=== PATIENT | male | born 1985 | race Caucasian/White ===

== ENCOUNTER 2018-08-08 09:22 | Inpatient (IN) | payer BC, OTHER ==
[~2018-08-08] VITALS: Ht 180.3 cm; Wt 98.4 kg
--- NOTE | 2018-08-08 19:52 | NUR ---
PRE ADMISSION NOTE Pt is a 32 y/o male seen at intake, A&O x 4 and presents with anxiety, flushed skin, chills, agitation, restlessness, flat affect, slumped posture and is fidgety. Pt is ambulatory with a steady gait. Vital signs: BP 124/73, HR 87, T 98.5 F, RR 18, O2 95% on room air and Pain 0/10. Pt is allergic to cat dander. Pt did bring home medications, which include; Lamictal as a mood stabilizer, Lexapro for depression, and Klonopin for increased anxiety. Pt reports abusing Klonopin since prescribed. Pt has been complaint with his other prescribed medications. Pt reports PMH of anxiety and depression. No history of seizures reported by the Pt. Educated Pt about rules and policies of the unit including handling of contraband and taking vital signs Q4H. Will continue care of Pt upon arrival on unit.
[2018-08-08 19:53] LABS: *AMPHETAMINE, URINE NEGATIVE (NEGATIVE); *BARBITURATE, URINE NEGATIVE (NEGATIVE); *CANNABINOID, URINE POSITIVE (NEGATIVE); *COCCAINE, URINE NEGATIVE (NEGATIVE); *OPIATE, URINE NEGATIVE (NEGATIVE); *PHENCYCLIDINE SCREEN,URINE NEGATIVE (NEGATIVE)
[2018-08-08] MEDS ORDERED: LAMO150T PO (19:59)
[2018-08-08] MEDS ORDERED: ESCI20TA PO (19:59)
[2018-08-08] MEDS ORDERED: CLON0.5T PO (19:59)
[2018-08-08] MEDS ORDERED: ESCI10TA PO (19:59)
--- NOTE | 2018-08-08 20:00 | NUR ---
ADMISSION NOTE Pt arrived on the unit at 1952 on 08/08/18 for medically supervised withdrawal from ETOTH and benzodiazepines. He also reported using marijuana. Skin and body check completed. No contraband found. Pt has provided all required tests at intake. Pt is 5'11 and weighs 217 lbs. Initial CIWA 3 COWS 5. Pt is disheveled with unkempt clothing and appearance. Pt presents with anxiety, flushed skin, agitation, and is fidgety. Pt is ambulatory with a steady gait. PEERLA. Respirations even and unlabored, lung sounds clear bilaterally. Last BM today. Vital signs: BP 124/73, HR 87, T 98.5 F, RR 18, O2 95% on room air and Pain 0/10. Pt is allergic to cat dander Substance Use History: 1. Alcohol 1 pint of whiskey and 72 fl oz of beer daily PO . Last use was 280ml of whiskey and 3 12 fl oz beers on 08/08/18. First use 20 years ago 2. Klonopin 0.5 mg daily by PO x 5 months. Last use was 0.5 mg on 08/08/18. First use March 2018 3. Marijuana 0.5 g-1 g daily by inhalation x 4 months. Last use was 0.5 g on 08/08/18. First use 20 years ago. Pt denies any PMH. Pt reported a psychiatric history of anxiety and depression. Pt has a HX of blackouts but denies any overdoses. Pt denies any SI/HI history or any psychiatric holds. Pt does not smoke cigarettes. Pt is full code, regular diet, NKA and on fall/seizure precautions. Pt states that his withdrawal symptoms include flu like symptoms, increased anxiety, sweats, and tremors. Pt has tried getting sober 4-5 times in the past. Pt states that his longest sobriety period was from November 2016 to March 07. Pt reports going to [facility] 2 times. First in 03/03 for a total of 5 days and 08/04 for a total of 5 days. Pt lives in an apartment with his girlfriend in [place]. Pt has no children. Pt reports he uses and has a difficult time remaining sober d/t increased anxiety and when he starts drinking it's hard for him to stop. Pt denies using needles for using drugs. In the past year the Pt has experienced a divorce, job loss, and has moved from [place] to [place]. Pt states " I want to get sober because my life is a million times better and I want to do it for myself. When asked what barriers keep him from staying sober the Pt responded, " I got away from my treatment team." "I have a great foundation in place, I have a supportive family and girlfriend. I also have a sponsor and I attend AA meetings weekly. But I've been drinking after my AA meetings and I haven't been honest with my team. 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 Oriented Pt to room and unit, educated Pt about rules and expectations of the unit and how to use the call light. Pt verbalized understanding. Addendum: 08/09/18 at 0737 by JOSÉ MIGUEL HENDRICKS RN Pt has been using 1 pint of whiskey and 72 fl oz of beer daily since February 2018
[2018-08-08] MEDS ORDERED: HYDROXYZINE PAMOATE 25 MG CAPSULE PO PRN (21:45)
[2018-08-08] MEDS ORDERED: MAGNESIUM HYDROXIDE 30 ML LIQUID UDC PO PRN (21:45)
[2018-08-08] MEDS ORDERED: LOPERAMIDE HCL 2 MG CAPSULE PO PRN ×2 (21:45)
[2018-08-08] MEDS ORDERED: CLONIDINE HCL 0.1 MG TABLET PO PRN (21:45)
[2018-08-08] MEDS ORDERED: THIAMINE HCL 200 MG/2 ML VIAL IM ONE (21:45)
[2018-08-08] MEDS ORDERED: ONDANSETRON ODT 4 MG TAB.RAPDIS SL PRN (21:45)
[2018-08-08] MEDS ORDERED: diphenhydrAMINE 50 MG CAPSULE PO PRN (21:45)
[2018-08-08] MEDS ORDERED: MAG HYDROX/AL HYDROX/SIMETH 30 ML LIQUID UDC PO PRN (21:45)
[2018-08-08] MEDS ORDERED: MIRALAX 17 GM POWD.PACK PO PRN (21:45)
[2018-08-08] MEDS ORDERED: IBUPROFEN 600 MG TABLET PO PRN (21:45)
[2018-08-08] MEDS ORDERED: DIAZEPAM 10 MG TABLET PO PRN ×2 (21:45)
[2018-08-08] MEDS ORDERED: LORAZEPAM 2 MG/1 ML VIAL IM PRN (21:45)
[2018-08-08] MEDS ORDERED: DIAZEPAM 5 MG TABLET PO PRN (21:45)
--- NOTE | 2018-08-08 22:16 | NUR ---
PRN VALIUM 10 MG ADMINISTRATION Pt reports increased anxiety,agitation, tremors, flushed/moist skin, and is restless. COWS 8 and CIWA 12. Valium 10 mg were administered per order. Safety measures in place. Call light within reach. Will continue to monitor.
[2018-08-08 22:43] LABS: BASOPHILS # (AUTO) 0.1 K/uL (0.0-8.0); BASOPHILS % (AUTO) 1.2 % (0.0-2.0); EOSINOPHILS # (AUTO) 0.2 K/uL (0.0-0.7); EOSINOPHILS % (AUTO) 2.5 % (0.0-7.0); HEMOGLOBIN 14.9 g/dL (12.5-16.3); LYMPHOCYTES # (AUTO) 2.5 K/uL (20.0-40.0); LYMPHOCYTES % (AUTO) 37.4 % (20.5-51.5); MEAN CORPUSCULAR HEMOGLOBIN 32.5 uug (23.8-33.4); MEAN CORPUSCULAR HGB CONC 35 g/dL (32.5-36.3); MEAN CORPUSCULAR VOLUME 93.7 fL (73.0-96.2); MONOCYTES # (AUTO) 0.7 K/uL (2.0-10.0); MONOCYTES % (AUTO) 10.2 % (0.0-11.0); NEUTROPHILS # (AUTO) 3.2 K/uL (1.8-8.9); NEUTROPHILS % (AUTO) 48.7 % (38.5-71.5); PLATELET COUNT (AUTO) 229 K/uL (152-348); RED BLOOD CELL COUNT(AUTO) 4.59 MIL/uL (4.06-5.63); WHITE BLOOD COUNT (AUTO) 6.6 K/uL (3.6-10.2)
[2018-08-08 22:57] LABS: BILIRUBIN,TOTAL 0.2 mg/dL (0.2-1.0); POTASSIUM 3.9 mmol/L (3.5-5.1); TOTAL PROTEIN, SERUM 7.2 g/dL (6.4-8.2)
[2018-08-08 23:07] LABS: THYROID STIMULATING HORMONE 3.091 mIU/mL (0.358-3.740)
--- NOTE | 2018-08-08 23:16 | NUR ---
PRN VALIUM 10 MG REASSESSMENT Pt was found laying in bed with eyes closed. Respiration even and unlabored. Medication noted effective. Safety measures in place. Call light within reach. Will continue to monitor.
--- NOTE | 2018-08-09 | NUR ---
COWS/CIWA DEFERRED AND VITAL SIGNS REFUSED Patient is noted in bed with eyes closed. Breathing even and non labored. COWS/CIWA and vital signs not able to be completed per order. Safety measures in place. Call light within reach. Will continue to monitor.
--- NOTE | 2018-08-09 07:37 | NUR ---
END OF SHIFT Pt is a 32 y/o male admitted on 08/08/18 for ETOH and benzo withdrawal. Pt placed on a 5 day Valium taper starting today. Pt presented with anxiety, flushed skin, chills, agitation, restlessness, flat affect, slumped posture and is fidgety. PRN Valium was administered, effective with S/S of withdrawal BRIT Pt sleeping 7 hours. Last CIWA 12. Pt slept 7 hours. Intake 500 ml, void x 1, stool x 0. Safety measures in place. Call light within reach. Pts needs have been met. Endorsed to day shift. Pt is only here for ETOH and Benzos. The COWS score is not needed for Pt's care. RN mistake.
--- NOTE | 2018-08-09 07:45 | NUR ---
START OF SHIFT Pt is a 32 yr old male, AA&Ox3. Pt was admitted on 08/08/18 for ETOH/Benzo withdrawal and is to start on 5 day Valium taper as ordered. Received report from machinist 2nd shift nurse. Pt was given Valium 10mg PO PRN for s/s of w/d. Last CIWA score was 12. Medication was effective. Pt slept for 7 hrs. Pt is currently in bed sleeping with respirations even and unlabored. Skin is intact, warm and moist to touch. Pt's room is observed with dirty clothes on the floor and open food wrappers on the bedside table. Safety precautions observed. call light is within reach. Will continue to monitor.
[2018-08-09 08:00] VITALS: BP 133/84
[2018-08-09] MEDS: FOLIC ACID 1 MG TABLET PO SCH (08:52)
[2018-08-09] MEDS: DIAZEPAM 10 MG TABLET PO SCH ×4 (08:52→20:37)
[2018-08-09] MEDS: THIAMINE HCL 100 MG TABLET PO SCH (08:52)
[2018-08-09] MEDS: MULTIVITAMINS,THERAPEUTIC TABLET PO SCH (08:52)
--- NOTE | 2018-08-09 08:52 | NUR ---
CIWA ASSESSMENT Pt is c/o anxiety, agitation, headache, generalized body aches 4/10, sweats and chills. Pt is observed restless. CIWA score was 12. Pt received Valium 10mg PO as scheduled at 0900 and Motrin 600mg PO PRN for generalized body aches and headaches. Encouraged increase fluid intake. Will continue to monitor.
[2018-08-09] MEDS ORDERED: 5 DAY TAPER VALIUM-SERENITY PROTOCOL PO PRN (09:00)
[2018-08-09] MEDS ORDERED: TUBERCULIN,PURIF.PROT.DERIV. 5 TU/0.1 ML TEST ID ONE (09:00)
--- NOTE | 2018-08-09 09:52 | NUR ---
PRN RE-ASSESSMENT Motrin 600mg PO PRN was effective for headache. Pt denies any headache at this time. Pt was encouraged increase fluid intake for hydration. Will continue to monitor.
[2018-08-09 12:00] VITALS: BP 132/87
--- NOTE | 2018-08-09 12:00 | NUR ---
CIWA ASSESSMENT Pt was c/o restlessness, anxiety, agitation, sweats, chills and lack of appetite. Pt is observed fidget and flushed. CIWA score was 8. Encouraged increase fluid intake for hydration. Safety precautions observed. will continue to monitor.
[2018-08-09] MEDS ORDERED: ESCITALOPRAM OXALATE 10 MG TABLET PO SCH ×2 (14:00)
--- NOTE | 2018-08-09 15:03 | NUR ---
Therapist prompted client to attend group therapy.
[2018-08-09] MEDS: ESCITALOPRAM OXALATE 10 MG TABLET PO SCH (15:10)
[2018-08-09 16:30] VITALS: BP 130/84
--- NOTE | 2018-08-09 20:00 | NUR ---
CIWA ASSESSMENT Pt is c/o anxiety, agitation, sweats and restlessness. Pt is observed fidgety in bed and flushed skin. CIWA score is 8. Pt was encouraged increase fluid intake for hydration. Will continue to monitor.
[2018-08-09 20:13] VITALS: BP 150/86
[2018-08-09] MEDS: LAMOTRIGINE 100 MG TABLET PO SCH (20:38)
--- NOTE | 2018-08-10 | NUR ---
CIWA/VITAL SIGNS DEFERRED CIWA assessment and vital signs are deferred at this time. Pt is currently in bed sleeping with respirations seven and unlabored. RR is 16. Safety precautions observed. Will continue to monitor.
--- NOTE | 2018-08-10 00:21 | NUR ---
END OF SHIFT Pt is a 32 yr old male, AA&Ox4. Pt was admitted on 08/08/18 for ETOH /Benzo withdrawal and is on 5 day Valium taper as ordered. Pt has been cooperative with medication regimen and plan of care. Pt was observed attending group therapy. Pt was c/o anxiety, agitation, headache, muscle aches, sweats, chills, restlessness and pins and needles. Pt is observed with flushed and clammy skin and is also observed fidgety in bed. Skin is intact, warm to touch. Pt was given Motrin 600mg PO PRN at 0852. Pt was encouraged increase fluid intake for hydration. Last CIWA score was 8 at 1999. Call light is within reach. Endorsed to RN nurse to continue with care.
--- NOTE | 2018-08-10 00:22 | NUR ---
START OF SHIFT Pt is a 32 y/o male admitted on 08/08/18 for ETOH and benzo withdrawal. Pt is on a 5 day Valium taper that started on 08/09/18, tolerating well. Last CIWA 8 at 1999 and PRN Motrin administered in the morning for headache. Upon assessment pt is sleeping. Endorsement from day shift nurse at 0021. Safety measures in place. Will continue to monitor.
--- NOTE | 2018-08-10 04:00 | NUR ---
CIWA DEFERRED AND VITALS REFUSED Pt laying in bed with eyes closed, CIWA deferred, to be assessed when pt is awake per orders. Vitals refused. Respirations even and unlabored. Safety measures in place. Call light within reach. Will continue to monitor.
[2018-08-10 04:06] LABS: HEPATITIS B SURFACE AG Negative (Negative)
--- NOTE | 2018-08-10 07:15 | NUR ---
END OF SHIFT Pt is a 32 y/o male admitted on 08/08/18 for ETOH and benzo withdrawal. Pt is on a 5 day Valium taper that started on 08/09/18, tolerating well. Pt slept through shift since endorsement. No PRNs administered. Last CIWA 8 at 1999. Pt slept 7 hours. Intake 500 ml, void x 1, stool x 0. Safety measures in place. Call light within reach. Pts needs have been met. Endorsed to day shift nurse.
--- NOTE | 2018-08-10 07:30 | NUR ---
START OF SHIFT Pt 32 y/o male admitted for etoh / benzo withdrawal. Pt received in room on bed with eyes closed resting, but easily arousable to name. Pt alert and oriented to name, place, and time. Perrla. Skin warm and moist to touch. Respirations even and unlabored. Appears disheveled and unkempt. Empty drink bottles and clothes scattered throughout the room. Encouraged to maintain hygiene. Anxious and restless this morning. Fidgety. Pressured speech. Bilateral hand tremors noted. It was reported that pt slept for 7 hours last night. Last ciwa=8 @ 1999. Pt is on a 5 day valium taper and is on day 2. Bed on lowest position with side rails x2 up for safety. Call light within reach.
[2018-08-10 08:00] VITALS: BP 127/90
--- NOTE | 2018-08-10 08:00 | NUR ---
CIWA ASSESSMENT ciwa=10. Anxious and restless. Pressured speech noted. Bilateral hand tremors noted. Complaints of intermittent perspiration noted. Fidgety. Not able to lay still in bed. Complaints of generalized discomfort.
[2018-08-10] MEDS: THIAMINE HCL 100 MG TABLET PO SCH (08:57)
[2018-08-10] MEDS: MULTIVITAMINS,THERAPEUTIC TABLET PO SCH (08:57)
[2018-08-10] MEDS: FOLIC ACID 1 MG TABLET PO SCH (08:57)
[2018-08-10] MEDS: DIAZEPAM 10 MG TABLET PO SCH ×3 (08:57→20:45)
[2018-08-10] MEDS: ESCITALOPRAM OXALATE 10 MG TABLET PO SCH (08:58)
[2018-08-10 12:00] VITALS: BP 122/73
--- NOTE | 2018-08-10 12:00 | NUR ---
CIWA ASSESSMENT ciwa=10. Anxious and restless. Bilateral hand tremors noted. Pressured speech. Fidgety.
--- NOTE | 2018-08-10 14:11 | NUR ---
Therapist prompted client to attend group therapy.
[2018-08-10 16:00] VITALS: BP 130/76
--- NOTE | 2018-08-10 16:00 | NUR ---
CIWA ASSESSMENT ciwa=10. Bilateral hand tremors noted. Anxious and restless. Pressured speech. Not able to sit still. Complaints of generalized discomfort.
--- NOTE | 2018-08-10 18:37 | NUR ---
END OF SHIFT Pt 32 y/o male admitted for etoh / benzo withdrawal. Pt alert and oriented to name, place, and time. Perrla. Skin warm and moist to touch. Respirations even and unlabored. Appears disheveled and unkempt. Clothes scattered throughout the room. Encouraged to maintain hygiene. Bilateral hand tremors noted. Pacing. Anxious and restless. Pressured speech noted. Generalized discomfort. Attended group activity. Was seen by MD today. Pt medication compliant. Last ciwa =10 @1600. Pt is on a 5 day valium taper and is on day 2. Bed on lowest position with side rails x2 up for safety. Call light within reach.
--- NOTE | 2018-08-10 19:10 | NUR ---
Start of shift note Receive report from day shift nurse. Pt is a 32 yo male, A+Ox4, presenting to [facility] for medically supervised ETOH/Benzo withdrawal. Pt was also using Marijuana. Pt noted with restlessness, agitation, and anxiety. Pt has HX of anxiety and depression which will be monitored during shift. Pt is on 5 day Valium taper, tolerated well. Respirations even and unlabored. Will continue to monitor.
[2018-08-10 20:11] VITALS: BP 123/76
--- NOTE | 2018-08-10 20:11 | NUR ---
CIWA Assessment CIWA: 8. Pt noted with fine tremors, sweat on brow, anxiety, and agitation. Respirations even and unlabored. Will continue to monitor.
[2018-08-10] MEDS: LAMOTRIGINE 100 MG TABLET PO SCH (20:45)
--- NOTE | 2018-08-11 00:44 | NUR ---
V/S refused and CIWA assessment deferred for sleep. Respirations even and unlabored. Will continue to monitor.
--- NOTE | 2018-08-11 04:43 | NUR ---
V/S refused and CIWA assessment deferred for sleep. Respirations even and unlabored. Will continue to monitor.
--- NOTE | 2018-08-11 07:00 | NUR ---
End of shift note Pt was continuously noted with anxiety and agitation. Pt remained in room for majority of shift except to get food from kitchen. Pt remained cooperative and compliant with all aspects of treatment. Pt was not given any PRN medications during shift. Pt is on 5 day Valium taper, tolerated well. Pt slept for a total of 8 HRS. Last CIWA: 8 @2010. Respirations even and unlabored. Will endorse to day shift nurse.
--- NOTE | 2018-08-11 07:30 | NUR ---
START OF SHIFT Pt 32 y/o male admitted for etoh/ benzo withdrawal. Pt received in room awake. Pt alert and oriented to name, place, and time. Perrla. Skin warm and moist to touch. Respirations even and unlabored. Appears disheveled. Hair uncombed. Clothes scattered throughout the room. Encouraged to maintain hygiene. Anxious and restless. Pressured speech. Not able to lay still on bed. Bilateral hand tremors noted. It was reported that pt slept for 8 hours last night. Last ciwa=8 @1999. Pt is on a 5 day valium taper and is on day 3. Bed on lowest position with side rails x2 up for safety. Call light within reach.
[2018-08-11 08:00] VITALS: BP 116/72
--- NOTE | 2018-08-11 08:00 | NUR ---
CIWA ASSESSMENT ciwa=11. Bilateral hand tremors noted. Anxious and restless. Fidgety. Not able to sit still. Complaints of generalized discomfort.
[2018-08-11] MEDS: FOLIC ACID 1 MG TABLET PO SCH (08:23)
[2018-08-11] MEDS: DIAZEPAM 5 MG TABLET PO SCH ×4 (08:23→20:44)
[2018-08-11] MEDS: MULTIVITAMINS,THERAPEUTIC TABLET PO SCH (08:23)
[2018-08-11] MEDS: THIAMINE HCL 100 MG TABLET PO SCH (08:23)
[2018-08-11] MEDS: ESCITALOPRAM OXALATE 10 MG TABLET PO SCH (08:24)
[2018-08-11 12:00] VITALS: BP 111/61
--- NOTE | 2018-08-11 12:00 | NUR ---
CIWA ASSESSMENT ciwa=11. Bilateral hand tremors noted. Anxious and restless. Pressured speech noted. Fidgety.
[2018-08-11 16:00] VITALS: BP 120/72
--- NOTE | 2018-08-11 16:00 | NUR ---
CIWA ASSESSMENT ciwa=11. Anxious and restless. Pressured speech. Intermittent perspiration. Bilateral hand tremors noted.
--- NOTE | 2018-08-11 18:39 | NUR ---
END OF SHIFT Pt 32 y/o male admitted for etoh / benzo withdrawal. Pt alert and oriented to name, place, and time. Perrla. Skin warm and moist to touch. Respirations even and unlabored. Appears disheveled and unkempt. Empty drink bottles and food wrappings scattered throughout the room. Encouraged to maintain hygiene. Bilateral hand tremors noted. Anxious and restless. Pressured speech noted. Intermittent perspiration. Isolative to room mostly today with minimal peer interaction. Attended group activity. Pt was seen by MD today. Pt is medication compliant. Last ciwa =11 @1600. Pt is on a 5 day valium taper and is on day 3. Bed on lowest position with side rails x 2 up for safety. Call light within reach.
--- NOTE | 2018-08-11 19:50 | NUR ---
Start of Shift Note Received 32 y/o male rose, admitted for medically supervised withdrawal from ETOH, and Klonopin. Px is also using marijuana. Px was placed on 5 day Valium taper started on 08/09/2018. Px is tolerating it. Last reported CIWA 11 by AM shift nurse. During the rounds at 1950, rose is awake inside his room, sitting on the edge of the bed. Px looks calm and unshaven. He states that his anxiety is pretty mild. No complaints made. Bed is on the lowest position, side rails up 2x and call light within reach. Well continue to monitor
[2018-08-11 20:00] VITALS: BP 106/70
--- NOTE | 2018-08-11 20:00 | NUR ---
CIWA 6 On assessment, px looks calm. He states that his anxiety is pretty mild. No complaints made at this time. will continue to monitor
[2018-08-11] MEDS: LAMOTRIGINE 100 MG TABLET PO SCH (20:45)
[2018-08-12] VITALS: BP 110/77
--- NOTE | 2018-08-12 | NUR ---
CIWA deferred CIWA deferred due to the px is asleep, to assess if the px is awake per doctor's order. will continue to monitor
[2018-08-12 04:00] VITALS: BP 108/71
--- NOTE | 2018-08-12 04:00 | NUR ---
CIWA deferred CIWA deferred due to the px is asleep, to assess if the px is awake per doctor's order. will continue to monitor
--- NOTE | 2018-08-12 07:05 | NUR ---
End of Shift Note During the shift slept most of the time. No PRN medications given. Oral intake of 1 L, voided 2x, No BM. Px slept for 9 hours. Last CIWA 6. Bed on lowest position, side rails up 2x, and call light within reach. Px endorsed to AM shift nurse.
--- NOTE | 2018-08-12 07:30 | NUR ---
Start of shift note; Received report from night nurse. Patient is a 32 year old male admitted on 08/08/18 for ETOH/ Benzodiazepine withdrawals. Patient was placed on a 5 day Valium taper. Patient's las5t CIWA was 6 per endorsement. Patient slept for 9 hours. No PRN medication given. Educated patient regarding the importance of compliance to treatment and medication regime. Encouraged patient to participate in group activities and therapy. All safety measures secured. Will continue to monitor patient.
[2018-08-12 08:00] VITALS: BP 124/80
--- NOTE | 2018-08-12 08:00 | NUR ---
CIWA Assessment; Patient is AOX4, current CIWA score is 11 manifested by intermittent sweats, anxiety, difficulty concentrating, muscle aches, generalized discomfort, malaise, fatigue and stomach cramps. Patient was placed on a 5 day Valium taper to help reduce withdrawal symptoms.
[2018-08-12] MEDS: FOLIC ACID 1 MG TABLET PO SCH (09:00)
[2018-08-12] MEDS: ESCITALOPRAM OXALATE 10 MG TABLET PO SCH (09:00)
[2018-08-12] MEDS: DIAZEPAM 5 MG TABLET PO SCH ×3 (09:00→20:54)
[2018-08-12] MEDS: THIAMINE HCL 100 MG TABLET PO SCH (09:00)
[2018-08-12] MEDS: MULTIVITAMINS,THERAPEUTIC TABLET PO SCH (09:02)
[2018-08-12 12:00] VITALS: BP 113/70
--- NOTE | 2018-08-12 12:00 | NUR ---
CIWA Assessment; Patient is AOX4, continues to have CIWA score of 11 manifested by intermittent sweats, anxiety, difficulty concentrating, muscle aches, generalized discomfort, malaise, fatigue and stomach cramps. Patient was placed on a 5 day Valium taper to help reduce withdrawal symptoms.
[2018-08-12 16:00] VITALS: BP 130/86
--- NOTE | 2018-08-12 16:00 | NUR ---
CIWA Assessment; Patient is AOX4, continues to have CIWA score of 10 manifested by intermittent sweats, anxiety, difficulty concentrating, muscle aches, generalized discomfort, malaise, fatigue and stomach cramps.
--- NOTE | 2018-08-12 18:44 | NUR ---
End of shift note; Patient is AOX4, patient's last CIWA is 10 at 1600 manifested by intermittent sweats, anxiety, difficulty concentrating, muscle aches, generalized discomfort, malaise, fatigue and stomach cramps. Patient remained compliant with treatment plan and medication regime. Patient participated in group activities and group therapy. All safety measures secured. Met all needs.
--- NOTE | 2018-08-12 19:15 | NUR ---
Start of Shift Note: Patient is a 32 y.o male admitted on 08/08/18 for medically supervised withdrawal from ETOH & Klonopin. Pt also reported use of Marijuana. Patient is alert & oriented x4. He presents with anxiety, agitation & fine tremors. Skin is moist and clammy. Pt currently on day 4 of his Valium taper and tolerating well. Last CIWA 10. No PRN medications received during day shift. Explained to patient current plan of care of the night and medication regimen. Both side rails up. Bed in the lowest position. Call light within pts reach. Will continue to monitor patient.
[2018-08-12 20:00] VITALS: BP 133/75
--- NOTE | 2018-08-12 20:00 | NUR ---
Ciwa Assessment Pt presented with anxiety, agitation, clammy skin & fine tremors. No headache noted. Denies hallucinations. CIWA 9 noted.
[2018-08-12] MEDS: LAMOTRIGINE 100 MG TABLET PO SCH (20:54)
--- NOTE | 2018-08-13 | NUR ---
Vitals/Ciwa deferred Patient refused vitals at this time. Pt in bed with eyes close, pt calm and appears comfortable. no apparent distress noted. Unable to assess ciwa at this time and will reassess when pt is awake. Will continue to monitor.
--- NOTE | 2018-08-13 04:00 | NUR ---
Vitals/Ciwa deferred Patient refused vitals at this time. Pt in bed with eyes close, no facial grimacing noted. No apparent distress noted. Unable to assess ciwa at this time and will reassess when pt is awake. Will continue to monitor.
--- NOTE | 2018-08-13 07:06 | NUR ---
End of Shift Note: Patient still asleep at this time. Pt remained alert & oriented x4. He presented with fine tremors, restlessness, anxiety, irritability and moist skin. Continues on a Valium taper and tolerating well. Last CIWA 9. No PRN medications received during day shift. Pt remained stable and vitals noted WNL. All due medications given and all needs attended. Pt slept for a total of 8 hours. Fluid intake:1125 ml. Voided 3x with no BM noted. Safety measures in place. Will endorse pt to day shift nurse.
--- NOTE | 2018-08-13 07:50 | NUR ---
START OF SHIFT NOTE Received report from night nurse, 32 year old male admitted for ETOH/Benzo withdrawal and continues with Valium taper tolerating well. Per endorsement patient did not receive any PRN, last CIWA-9, slept for 9 hours. Received patient with flat facial expression, anxious, agitation, restless, sweats, chills, bilateral hand tremors noted. Educated patient importance of attending groups activities to learn new coping skills, patient verbalized understanding. Patient is due for scheduled medications. All safety measures in place. Will cont with plan of care.
[2018-08-13 08:00] VITALS: BP 113/72
[2018-08-13] MEDS: MULTIVITAMINS,THERAPEUTIC TABLET PO SCH (08:25)
[2018-08-13] MEDS: THIAMINE HCL 100 MG TABLET PO SCH (08:25)
[2018-08-13] MEDS: FOLIC ACID 1 MG TABLET PO SCH (08:25)
[2018-08-13] MEDS: ESCITALOPRAM OXALATE 10 MG TABLET PO SCH (08:25)
--- NOTE | 2018-08-13 08:25 | NUR ---
CIWA ASSESSMENT Patient presented with sad facial expression, anxiety, agitation, restless, fatigue, dysphoria. Patient was given his schedule medications. Will cont to monitor.
[2018-08-13] MEDS ORDERED: DIAZEPAM 5 MG TABLET PO SCH (09:00)
[2018-08-13 12:00] VITALS: BP 130/81
--- NOTE | 2018-08-13 12:00 | NUR ---
CIWA ASSESSMENT CIWA score noted-12. Patient continues to exhibits s/s of withdrawal such as anxiety, agitation, restless, fatigue, bilateral hand tremors. Encourage patient to attend groups activities to learn new coping skills, patient verbalized understanding. Will cont to monitor.
[2018-08-13 16:00] VITALS: BP 138/73
--- NOTE | 2018-08-13 16:00 | NUR ---
CIWA ASSESSMENT CIWA score noted-10, patient continues to exhibits s/s of withdrawal such as anxiety, restless, agitation, bilateral hand tremors, fatigue, sweats. Encourage patient to use distraction such as reading books, watching TV, patient verbalized understanding. Will cont to monitor.
--- NOTE | 2018-08-13 19:05 | NUR ---
END OF SHIFT NOTE Gave report to night nurse, 32 year old male admitted for ETOH/Benzo withdrawal. Patient continues with 5 days Valium taper tolerating well. Patient presented with sad facial expression, anxiety, agitation, restless, diaphoresis, bilateral hand tremors. Patient was given scheduled medications. Patient did not receive any PRN during shift. Patient noted attending groups activities. Patient denies any SI/HI. Vital signs WNL. Encourage PO fluids as tolerated. Last CIWA score was-10 . All safety measures in place, call light within reach. Patient endorse to night nurse in stable condition.
--- NOTE | 2018-08-13 19:15 | NUR ---
Start of Shift Note: Patient is a 32 y.o male admitted on 08/08/18 for medically supervised withdrawal from ETOH & Klonopin. Pt also reported use of Marijuana. Pt currently attending group. Pt completed his Valium taper and he is scheduled to go home tomorrow. Last CIWA 10. No PRN medications received during day shift. Explained to patient current plan of care of the night and medication regimen. Both side rails up. Bed in the lowest position. Call light within pts reach. Will continue to monitor patient.
[2018-08-13 20:00] VITALS: BP 146/86
--- NOTE | 2018-08-13 20:00 | NUR ---
Ciwa Assessment Patient is alert & oriented x4. He is hyperverbal, anxious and fidgety. He denies headache nor hallucinations. No N/V/D noted. Skin is moist and clammy. Per pt, he got excited after the H&I panel and also because hes leaving tomorrow. CIWA at this time is 7.
[2018-08-13] MEDS: LAMOTRIGINE 100 MG TABLET PO SCH (21:45)
--- NOTE | 2018-08-14 | NUR ---
Vitals/Ciwa deferred Pt in bed with eyes close, no facial grimacing noted. Noshortness of breath noted. Respiration even & unlabored. Unable to assess ciwa at this time and will reassess when pt is awake. Will continue to monitor.
--- NOTE | 2018-08-14 07:10 | NUR ---
End of Shift Note: Patient still asleep at this time. Pt remained alert & oriented x4. He presented with fine tremors, restlessness, anxiety, irritability and moist skin. He remained compliant with treatment and medication regimen. Completed his Valium taper and he is scheduled to go home today. Last CIWA 8. No PRN medications during my shift. Pt remained stable and vitals noted WNL. All due medications given and all needs attended. Pt slept for a total of 6 hours. Fluid intake: 1125 ml. Voided 3x with no BM noted. Safety measures in place. Will endorse pt to day shift nurse.
[2018-08-14 08:00] VITALS: BP 132/63
[2018-08-14] MEDS: MULTIVITAMINS,THERAPEUTIC TABLET PO SCH (08:43)
[2018-08-14] MEDS: ESCITALOPRAM OXALATE 10 MG TABLET PO SCH (08:43)
[2018-08-14] MEDS: FOLIC ACID 1 MG TABLET PO SCH (08:43)
[2018-08-14] MEDS: THIAMINE HCL 100 MG TABLET PO SCH (08:43)
--- NOTE | 2018-08-14 08:50 | NUR ---
Start of Shift / CIWA 6 Patient is a 32 y/o male admitted on 08/08/18 for medically supervised ETOH and klonopin withdrawal. Has completed his valium taper yesterday and tolerated well. Pt is scheduled to go home today. Last CIWA 8. No PRNs and slept 6 hrs. Educated pt w/ plan of care and med regimen. Pt presents anxiety, restlessness, minor tremors noted, pt is actively moving around unit. Side rails upx2, bed in the lowest position, call light within reach. Will continue to monitor.
--- NOTE | 2018-08-14 09:42 | NUR ---
Discharge Note Pt is in stable condition, vs wnl, states, "I am ready for discharge." Pt is given d/c instructions and pt verbalized understanding. Last CIWA 6. notified of pt discharge. Pt has left the building with all belongings, home meds, and discharge paperwork at 0942 today on 08/14/18. Pt has been picked up by his girlfriend outside the building.
== END 2018-08-14 09:42 | disposition home or self-care (01) | DRG 895 ==
LOC: SRC 18:31
PROVIDERS: ADMIT Family Medicine Addiction Medicine; ATTEND Family Medicine Addiction Medicine
PROC: HZ2ZZZZ Detoxification Services for Substance Abuse Treatment (ICD-10-PCS; principal; 2018-08-08)
PROC: HZ41ZZZ Group Counseling for Substance Abuse Treatment, Behavioral (ICD-10-PCS; 2018-08-09)
PROC: HZ31ZZZ Individual Counseling for Substance Abuse Treatment, Behavioral (ICD-10-PCS; 2018-08-10)
DX: F10.230 Alcohol dependence with withdrawal, uncomplicated (principal); F31.60 Bipolar disorder, current episode mixed, unspecified; F13.230 Sedative, hypnotic or anxiolytic dependence with withdrawal, uncomplicated; Y90.9 Presence of alcohol in blood, level not specified; D69.6 Thrombocytopenia, unspecified; F41.1 Generalized anxiety disorder; Z79.899 Other long term (current) drug therapy; F12.10 Cannabis abuse, uncomplicated; Z81.1 Family history of alcohol abuse and dependence
CPT/HCPCS: 36415; 70030-TC; 80307; 80349; 83690; 83735; 84443; 85025; 86580; 86592; 86705; 86803; 87340; 87806; A4663; G0480; J3411